=== PATIENT | female | born 1955 | race Caucasian/White ===

== ENCOUNTER → 2018-05-11 | Outpatient (CLI) | payer OTHER ==
[~2018-05-11] MED LIST: CEPHALEXIN250 M1 PO; CLEOCIN HCL300 MG PO; MINOCYCLIN100 MG/CAP PO; PERCOCET 325 MG1 TA2 PO
== END ==
LOC: MC.RAD 15:33
DX: Z12.31 Encounter for screening mammogram for malignant neoplasm of breast (principal)

== ENCOUNTER → 2020-04-17 | Outpatient (CLI) | payer OTHER | LOC: COL.LAB 12:21 | DX: M19.90 Unspecified osteoarthritis, unspecified site (principal); G47.00 Insomnia, unspecified; K58.9 Irritable bowel syndrome, unspecified; R53.82 Chronic fatigue, unspecified ==